=== PATIENT | female | born 1995 | race Caucasian/White ===

== ENCOUNTER 2017-01-26 13:15 | Emergency (ER) | payer OTHER, SELFPAY | END 2017-01-26 14:06 | disposition home or self-care (01) | LOC: NAV ERS 13:15 | DX: O99.512 Diseases of the respiratory system complicating pregnancy, second trimester (principal); J06.9 Acute upper respiratory infection, unspecified; O16.2 Unspecified maternal hypertension, second trimester; O99.332 Smoking (tobacco) complicating pregnancy, second trimester; Z3A.16 16 weeks gestation of pregnancy | CPT/HCPCS: 99282 ==

== ENCOUNTER 2018-03-10 20:40 | Emergency (ER) | payer OTHER ==
[2018-03-10] MEDS ORDERED: Ondansetron ODT 4 MG TAB ONE (21:57)
[2018-03-10] MEDS ORDERED: HYDROcodone/Acetaminophen 5/325 mg Tablet ONE (21:58)
[2018-03-10] MEDS ORDERED: Lidocaine 1% w/Epinephrine 1:100K 30 ML VIAL ONE (22:23)
[2018-03-10] MEDS ORDERED: Sulfameth/Trimethoprim DS 800-160mg TAB ONE (23:09)
== END 2018-03-10 23:23 | disposition home or self-care (01) ==
LOC: NAV ERS 20:40
DX: N76.4 Abscess of vulva (principal); I10 Essential (primary) hypertension; F32.9 Major depressive disorder, single episode, unspecified; F17.210 Nicotine dependence, cigarettes, uncomplicated
CPT/HCPCS: 56405; 87070; 87077; 87186; 87205; J2001; Q0162

== ENCOUNTER 2020-09-11 14:33 | Emergency (ER) | payer OTHER ==
[2020-09-11] MEDS ORDERED: Acetaminophen 325 MG Suppository ONE (14:48)
[2020-09-11] MEDS ORDERED: Acetaminophen 325 MG TAB ONE (14:48)
[2020-09-12 10:31] LABS: SARS-CoV-2 PCR by NAA Not Detected (NotDetected)
== END 2020-09-11 15:50 | disposition home or self-care (01) ==
LOC: NAV ERS 14:33
DX: J02.9 Acute pharyngitis, unspecified (principal); Z20.822 Contact with and (suspected) exposure to COVID-19; I10 Essential (primary) hypertension; F17.210 Nicotine dependence, cigarettes, uncomplicated; Z79.899 Other long term (current) drug therapy
CPT/HCPCS: 87081; 87430; 87635; 99284; U0003; U0005

== ENCOUNTER 2021-03-29 12:05 | Emergency (ER) | payer OTHER ==
[2021-03-29 12:58] LABS: Bilirubin Negative (Negative); Blood, Urine Negative (Negative); Clarity Clear (Clear); Glucose, Urine (Dipstick) Negative (Negative); Ketone, Urine Negative (Negative); Leukocyte Negative (Negative); Nitrite Negative (Negative); Protein, Urine (Dipstick) Negative (Neg-Trace); Urobilinogen 0.2 mg/dL (Less than 2)
[2021-03-30 11:35] LABS: SARS-CoV-2 PCR by NAA Not Detected (NotDetected)
== END 2021-03-29 13:34 | disposition home or self-care (01) ==
LOC: NAV ERS 12:05
DX: J06.9 Acute upper respiratory infection, unspecified (principal); F17.210 Nicotine dependence, cigarettes, uncomplicated; Z20.822 Contact with and (suspected) exposure to COVID-19
CPT/HCPCS: 81003; 99283; U0003; U0005